=== PATIENT | male | born 1980 | race American Indian/Alaskan Native ===

== ENCOUNTER 2021-08-26 09:45 | Emergency (ER) | payer OTHER ==
[2021-08-26 11:43] VITALS: BP 176/110
[2021-08-26] MEDS ORDERED: ACETAMINOPHEN 500 MG TAB PO ONE (12:41)
[2021-08-26] MEDS ORDERED: IBUPROFEN 600 MG TAB PO ONE (12:41)
[2021-08-26] MEDS ORDERED: TETANUS,DIPH,PERTUSS(ACELL) VACCINE 0.5 ML SYRINGE IM ONE (12:41)
--- NOTE | 2021-08-26 13:26 | Emergency Department Report ---
ED Lower Extremity HPI - General Chief Complaint: Puncture Wound Stated Complaint: STEPPED ON NAIL Source: patient Mode of arrival: Ambulatory Limitations: No Limitations - History of Present Illness Initial Comments: Patient is a 40-year-old -[place] male with a history of hypertension who presents to the ED with complaint of acute onset persistent right plantar foot pain due to a small puncture wound after he stepped on a nail that pierced through his shoes about 18 hours ago. Patient states that the pain has been persistent and constant even though he remove the nail. Patient states that he is not up-to-date with tetanus vaccinations. Patient denies numbness and tingling or weakness of right leg, fever, chills, nausea and vomiting, chest pain or shortness of breath, fall or heavy lifting. MD Complaint: foot injury (Plantar right foot puncture wound, stepped on a nail) -: Sudden, hour(s) (18) Injury: Foot: Right (Plantar right foot puncture wound) Type of Injury: laceration (Puncture wound to right plantar foot) Place: home Severity: severe Severity scale (0 -10): 7 Improves With: nothing Worsens With: weight bearing, movement, palpation Context: stepped on nail Associated Symptoms: able to partially bear weight - Related Data Previous Rx's Medication Instructions Recorded Last Taken Type Ciprofloxacin HCl 500 mg PO Q12H #20 tab 08/26/21 Unknown Rx Ibuprofen [Motrin] 800 mg PO Q8HR PRN #30 tablet 08/26/21 Unknown Rx Allergies Allergy/AdvReac Type Severity Reaction Status Date / Time shellfish derived Allergy Anaphylaxis Verified 08/26/21 11:42 ED Review of Systems ROS: Stated complaint: STEPPED ON NAIL Other details as noted in HPI Constitutional: denies: chills, fever Eyes: denies: eye pain, eye discharge, vision change ENT: denies: ear pain, throat pain Respiratory: denies: cough, shortness of breath, wheezing Cardiovascular: denies: chest pain, palpitations Endocrine: no symptoms reported Gastrointestinal: denies: abdominal pain, nausea, vomiting, diarrhea Musculoskeletal: arthralgia (Right plantar foot pain due to a small puncture wound). denies: back pain, joint swelling Skin: other (Puncture wound of right plantar foot). denies: rash, lesions Neurological: denies: headache, weakness, paresthesias Psychiatric: denies: anxiety, depression Hematological/Lymphatic: denies: easy bleeding, easy bruising ED Past Medical Hx - Past Medical History Previous Medical History?: Yes Hx Hypertension: Yes - Surgical History Past Surgical History?: No - Medications Home Medications: Home Medications Medication Instructions Recorded Confirmed Last Taken Type Ciprofloxacin HCl 500 mg PO Q12H #20 tab 08/26/21 Unknown Rx Ibuprofen [Motrin] 800 mg PO Q8HR PRN #30 tablet 08/26/21 Unknown Rx ED Physical Exam - General Limitations: No Limitations General appearance: alert, in no apparent distress - Head Head exam: Present: atraumatic, normocephalic, normal inspection - Eye Eye exam: Present: normal appearance, PERRL, EOMI Pupils: Present: normal accommodation - ENT ENT exam: Present: normal exam, normal orophraynx, mucous membranes moist, TM's normal bilaterally, normal external ear exam - Neck Neck exam: Present: normal inspection, full ROM. Absent: tenderness - Respiratory Respiratory exam: Present: normal lung sounds bilaterally. Absent: respiratory distress, wheezes, rales, stridor, chest wall tenderness, accessory muscle use, decreased breath sounds, prolonged expiratory - Cardiovascular Cardiovascular Exam: Present: regular rate, normal rhythm, normal heart sounds. Absent: systolic murmur, diastolic murmur, rubs, gallop - GI/Abdominal GI/Abdominal exam: Present: soft, normal bowel sounds. Absent: tenderness, guarding, rebound, hyperactive bowel sounds, hypoactive bowel sounds, organomegaly - Extremities Exam Extremities exam: Present: normal inspection, full ROM, tenderness (Palpable localized right plantar foot tenderness due to a small puncture wound), normal capillary refill. Absent: pedal edema, joint swelling, calf tenderness - Back Exam Back exam: Present: normal inspection, full ROM. Absent: tenderness, CVA tenderness (R), CVA tenderness (L), muscle spasm, paraspinal tenderness, vertebral tenderness - Neurological Exam Neurological exam: Present: alert, oriented X3, CN II-XII intact, normal gait, reflexes normal - Psychiatric Psychiatric exam: Present: normal affect, normal mood - Skin Skin exam: Present: warm, dry, intact, normal color, other (Small puncture wound of right plantar foot with localized tenderness). Absent: rash ED Course Vital Signs 08/26/21 08/26/21 08/26/21 11:36 11:43 13:18 Temperature 98.5 F Pulse Rate 73 Respiratory 20 Rate Blood Pressure 189/120 176/110 [Right] O2 Sat by Pulse 98 98 Oximetry ED Lower Extremity MDM - Medical Decision Making This is a 40-year-old -[place] male with a history of hypertension who presents to the ED with complaint of acute onset persistent right plantar foot pain due to a small puncture wound after he stepped on a nail that pierced through his shoes about 18 hours ago. Patient states that the pain has been persistent and constant even though he remove the nail. Patient states that he is not up-to-date with tetanus vaccinations. In the ED, patient is alert and oriented x3 and is not in any distress. Patient was treated for pain in the ED and also received booster tetanus vaccinations. Patient will discharge home on pain medications and prophylactic antibiotics and advised to follow-up with his primary care physician in 7 to 10 days for reevaluation or return to the ED immediately if symptoms get worse. - Differential Diagnosis Puncture wound; cellulitis; laceration; Critical care attestation.: If time is entered above; I have spent that time in minutes in the direct care of this critically ill patient, excluding procedure time. ED Disposition Clinical Impression: Puncture wound of right foot excluding toes without complication Qualifiers: Encounter type: initial encounter Qualified Code(s): S91.331A - Puncture wound without foreign body, right foot, initial encounter Disposition: 01 HOME / SELF CARE / HOMELESS Is pt being admited?: No Does the pt Need Aspirin: No Condition: Stable Instructions: Puncture Wound, [id number], Wound Care, Adult Additional Instructions: Take medication with food, drink plenty of fluids, follow-up with your primary care physician in 7 to 10 days for reevaluation. Return to the ED immediately if symptoms get worse. Prescriptions: Ciprofloxacin HCl 500 mg PO Q12H #20 tab Ibuprofen [Motrin] 800 mg PO Q8HR PRN #30 tablet PRN Reason: Pain , Severe (7-10) Referrals: [facility] [Provider Group] - 7-10 days Forms: Work/School Release Form(ED) Time of Disposition: 13:33 Print Language: [place]
== END 2021-08-26 14:30 | disposition home or self-care (01) ==
LOC: EDSEX → ED 09:45
DX: S91.331A Puncture wound without foreign body, right foot, initial encounter (principal); I10 Essential (primary) hypertension; Z79.899 Other long term (current) drug therapy; Z91.013 Allergy to seafood; W45.0XXA Nail entering through skin, initial encounter; Y93.89 Activity, other specified; Y92.89 Other specified places as the place of occurrence of the external cause; Y99.8 Other external cause status
CPT/HCPCS: 90471; 90715; 99282